=== PATIENT | female | born 1960 | race Caucasian/White ===

== ENCOUNTER 2021-10-06 18:05 | Emergency (ER) | payer OTHER ==
[~2021-10-06] VITALS: Ht 170.2 cm; Wt 72.7 kg
[~2021-10-06 18:05] MED LIST: DILT240C94 PO; GLIP5TAB11 PO; INSLAN SQ; METF-446 PO
[2021-10-06 18:19] VITALS: BP 137/90
[2021-10-06] MEDS ORDERED: HYDROCODONE/ACETAMINOPHEN 5-325 MG TABLET PO ONE (18:30)
== END 2021-10-06 19:31 | disposition home or self-care (01) ==
LOC: EMS 18:05
DX: R07.89 Other chest pain (principal); E11.9 Type 2 diabetes mellitus without complications; I10 Essential (primary) hypertension; Z88.0 Allergy status to penicillin; Z79.4 Long term (current) use of insulin
CPT/HCPCS: 71045; 93005; 99283